=== PATIENT | male | born 1985 | race Caucasian/White ===

== ENCOUNTER 2024-08-01 13:43 | Outpatient (CLI) | payer OTHER ==
[~2024-08-01] VITALS: Ht 172.7 cm; Wt 86.2 kg
[2024-08-01] MEDS: albuterol 2.5 MG/3 ML nebule NEB ONE (14:47)
[2024-08-01 14:48] VITALS: PULSE 84; RESP 16; O2SAT 95
[2024-08-01 15:02] VITALS: PULSE 82; RESP 16
== END 2024-08-01 23:59 | disposition home or self-care (01) ==
LOC: RT 13:43
PROVIDERS: ATTEND Chiropractor
DX: J40 Bronchitis, not specified as acute or chronic (principal)
CPT/HCPCS: 94060; 94760

== ENCOUNTER 2024-10-17 15:17 | Emergency (ER) | payer OTHER ==
[~2024-10-17] VITALS: Ht 172.7 cm; Wt 87.8 kg
[2024-10-17 15:23] VITALS: BP 165/96; PULSE 70; O2SAT 99
[2024-10-17] MEDS ORDERED: HYDR-3965 PO (16:07)
[2024-10-17] MEDS: triamcinolone acetonide 40mg/ml inj IJ ONE (16:25)
[2024-10-17] MEDS: BUPIVAcaine/PF 2.5 mg/ml (0.25%) 30ml vial IJ ONE (16:25)
[2024-10-17 16:29] VITALS: RESP 16; TEMP 98
== END 2024-10-17 16:30 | disposition home or self-care (01) ==
LOC: ER 15:18
DX: M75.31 Calcific tendinitis of right shoulder (principal); M25.511 Pain in right shoulder; Z88.2 Allergy status to sulfonamides
CPT/HCPCS: 20552; 73030; 99284; A4565